=== PATIENT | male | born 1995 | race Caucasian/White ===

== ENCOUNTER 2023-04-18 12:21 | Emergency (ER) | payer BC, OTHER, SELFPAY ==
--- NOTE | 2023-04-18 12:33 | ED.GENMED ---
History of Present Illness
General
Chief Complaint: Foreign Body Removal
Source: family (Mother and father with patient)
Time Seen by Provider: 04/18/23 12:33
Travel History
Have you had any contact with someone who has COVID-19?: No
Do you have any symptoms of coronavirus? Fever > 100 degrees, chills, cough, shortness of breath, sore throat, loss of taste or smell, muscle aches, or headache?: No
History of Present Illness
History of Present Illness:
27-year-old male with autism, seizure disorder presents with his parents who state he has a plastic tip of a earbud stuck in the left ear. There was no attempt to get it out at this point. Patient denies pain in his ear.
Past History
Past History
ED Past Medical History: Seizures and Psychiatric (Autism)
ED Past Surgical History: Other ([place] teeth)
Social History
Tobacco: Non-smoker
Alcohol: None
Personal: Single
Living: with family
Review of Systems
Review of Systems
Allergies reviewed?: Yes
All Other Systems: ROS reviewed and negative except as documented in HPI and ROS
EENT: Reports other (Foreign body left ear)
Phy Exam
Physical Exam
Physical Exam:
PHYSICAL EXAMINATION:
General: no apparent distress, not acutely ill
ENT: red FB visible left ear canal
Neuro: alert
Psychiatric: well kept.
Musculoskeletal: Moves with ease
Skin: Warm, pink.
MDM/Problems Addressed
MDM/Problems Addressed:
27-year-old male with autism, seizure disorder presents with his parents who state he has a plastic tip of a earbud stuck in the left ear. There was no attempt to get it out at this point. Patient denies pain in his ear.
There is a soft red rubber foreign body in the left ear canal.
FB was easily removed with alligator forceps.
The ear canal is normal appearing
*Critical Care Note
Total Time (30-74mins, 75-104mins- exclusive of procedures): Not Applicable
ED Attending Note
-
Portions of this chart may have been created with voice recognition software.� Occasional wrong word or��sound alike� substitutions may have occurred due to the inherent limitations of voice recognition software.
Discharge Plan
Departure
Patient Disposition: Home (Routine Discharge)
Date of Disposition: 04/18/23
Time of Disposition: 12:44
Patient with high blood pressure during this ER visit?: No
Condition: Good
Discharge Problem:
Acute foreign body of left ear canal
Instructions: Foreign Body in the Ear ED
Referrals:
UNKNOWN - PT DOES,NOT KNOW [Family Provider] -
Interventions
Interventions:
*Risk Screen - Suicide Last Done: 04/18/23 12:24
*General Assessment Last Done: 04/18/23 12:24
*Neglect/Abuse Screening Last Done: 04/18/23 12:24
*Nursing Disposition Last Done: 04/18/23 12:45
Discharge Date and Time
Discharge Date/Time: 04/18/23 12:46
--- NOTE | 2023-04-18 12:42 | EDRN ---
the pt was assessed and evaluated by LAURA AMADOR. Sara states she removed a soft ear bud from the pts left ear. father then took the pt out to the car immediately after PA removed earbud due to the pt being autistic.
== END 2023-04-18 12:46 | disposition home or self-care (01) ==
LOC: EMR 12:21
PROVIDERS: EMERGENCY PHYSICIAN Emergency Medicine
DX: T16.2XXA Foreign body in left ear, initial encounter (principal); W44.G1XA Audio device entering into or through a natural orifice, initial encounter; F84.0 Autistic disorder; G40.909 Epilepsy, unspecified, not intractable, without status epilepticus
CPT/HCPCS: 99282; 69200